=== PATIENT | female | born 1945 | race Caucasian/White ===

== ENCOUNTER 2022-02-11 10:52 | Day surgery (SDC) | payer OTHER ==
[~2022-02-11] VITALS: Ht 149.9 cm; Wt 36.7 kg
[2022-02-11] MEDS ORDERED: MIDAZOLAM 5 MG/5 ML VIAL ONE (13:12)
[2022-02-11] MEDS ORDERED: LIDOCAINE 2% 100 MG/5 ML UJET TP ONE (13:12)
[2022-02-11] MEDS ORDERED: fentaNYL citrate 0.05 MG/ML VIAL ONE (13:12)
[2022-02-11] MEDS ORDERED: fentaNYL citrate 0.05 MG/ML VIAL IVP ONE (15:10)
[2022-02-11] MEDS ORDERED: MIDAZOLAM 5 MG/5 ML VIAL IV ONE (15:10)
== END 2022-02-11 15:00 | disposition home or self-care (01) ==
LOC: MOR 10:52 → MMU 10:53 → MOR 15:00
PROVIDERS: ATTEND Internal Medicine Gastroenterology
DX: Z12.11 Encounter for screening for malignant neoplasm of colon (principal); R10.13 Epigastric pain; Z20.822 Contact with and (suspected) exposure to COVID-19
CPT/HCPCS: 36415; 43239; 86677; 87426; G0121; J2250; J3010